=== PATIENT | female | born 1965 | race Caucasian/White ===

== ENCOUNTER 2018-07-17 10:31 | Day surgery (SDC) | payer BC ==
[2018-07-17] MEDS ORDERED: LIDOCAINE 2% (SDV) 5 ML INJ (13:26)
[2018-07-17] MEDS ORDERED: PROPOFOL 40 ML ×2 (13:26→14:16)
[2018-07-17] MEDS ORDERED: PHENYLephrine (100 MCG/ML) 5ML SYG (13:28)
== END 2018-07-18 09:24 | disposition home or self-care (01) ==
LOC: GIL 10:31
DX: K21.0 Gastro-esophageal reflux disease with esophagitis (principal); I10 Essential (primary) hypertension
CPT/HCPCS: 43239; 84703; 88305; 88312; 88313